=== PATIENT | female | born 1995 | race African-American/Black ===

== ENCOUNTER 2021-05-05 13:27 | Emergency (ER) | payer BC, MEDICARE, SELFPAY ==
--- NOTE | ~2021-05-05 | XR_ITS ---
XR ankle LT min 3V DATE: 05/05/2021 17:23 INDICATION: Fall. Left ankle injury, pain TECHNIQUE: 4 views COMPARISON: None FINDINGS: No fracture or dislocation of the ankle or disruption of the ankle mortise. No periosteal r eaction or bone destruction. 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
[2021-05-05 13:30] VITALS: BP 137/87; PULSE 86; RESP 16; TEMP 36.6; O2SAT 100
[2021-05-05 16:11] VITALS: BP 126/78; PULSE 88; RESP 12; TEMP 36.8; O2SAT 98
--- NOTE | 2021-05-05 16:20 | ED.LOWEXIN ---
HPI - Extremity Injury (Lower) General Chief Complaint: Extremity Injury, Lower Stated Complaint: left foot injury Time Seen by Provider: 05/05/21 16:20 Source: patient Mode of arrival: ambulatory Limitations: no limitations History of Present Illness HPI Narrative: Patient is a 26-year-old female presenting to the emergency department for evaluation of left ankle pain. Pain is on the lateral aspect of the left ankle that occurred while the patient was tripping over her feet. No head trauma, loss of conscious. No neck pain. Patient states outside of her left ankle touch the floor with immediate pain. No popping sensation. She has been ambulatory but states that ambulation does cause worsening pain. She has been taking Tylenol and ibuprofen without much improvement in her symptoms. Reports mild swelling denies bruising. No history of injury to this ankle in the past. Pain is dull, aching in nature, patient is able to flex and extend at the ankle. Related Data Allergies Allergy/AdvReac Type Severity Reaction Status Date / Time No Known Allergies Allergy Verified 05/05/21 17:43 Review of Systems Review of Systems: CONSTITUTIONAL: Denies fever CARDIOVASCULAR: Denies chest pain RESPIRATORY: Denies cough or dyspnea. GASTROINTESTINAL: Denies abdominal pain SKIN: Denies rash MUSCULOSKELETAL: Denies back pain, reports lateral left ankle pain NEUROLOGIC: Denies headache [facility] Social History Social History (Updated 05/05/21 @ 17:40 by Osiris Zhang MD) Smoking status: Never smoker Alcohol intake: never Substance use: never Gender identity (if verbalized by the patient): Female Exam Narrative: GENERAL: Awake, alert, conversant HEAD: Normocephalic, atraumatic. EYES: PERRLA and EOMI. ENT: Nares clear, no rhinorrhea or epistaxis. Mucous membranes moist. NECK: Supple. CHEST: No respiratory distress, breathing even and non labored HEART: Regular rate, sinus rhythm ABDOMEN:Non distended, non tender EXTREMITIES: Normal range of motion. Mild edema about the left ankle. Tenderness to the lateral malleolus, no medial malleolar tenderness. No deformity. No ecchymosis. Full flexion and extension without limitation. Full flexion-extension of the left knee without limitation. DP pulse 2+. Capillary refill less than 3 seconds. SKIN: Warm, dry, no rash. NEURO:No focal deficits. Alert and oriented x3 Course Vital Signs Vital signs: Vital Signs Temperature 36.6 C 05/05/21 13:30 Pulse Rate 86 05/05/21 13:30 Respiratory Rate 16 05/05/21 13:30 Blood Pressure 137/87 05/05/21 13:30 Pulse Oximetry 100 05/05/21 13:30 Temperature 36.8 C 05/05/21 16:11 Pulse Rate 88 05/05/21 16:11 Respiratory Rate 12 05/05/21 16:11 Blood Pressure 126/78 05/05/21 16:11 Pulse Oximetry 98 05/05/21 16:11 MDM - Extremity Injury (Lower) MDM Narrative Medical decision making narrative: Patient presented for evaluation of lateral left ankle pain after a ground-level fall. Patient with mild edema, no ecchymosis or erythema. Intact neurovascularly. X-ray is negative. Exam seems most consistent with ankle sprain. Patient was then discharged home advised to rest, ice, elevate continue anti-inflammatory medication. Differential Diagnosis Differential diagnosis: Likely ankle sprain and strain and ankle fracture Imaging Data Radiologist's impression: ITS Impressions Ankle X-Ray 05/05/21 17:25 IMPRESSION: No fracture or dislocation Discharge Plan Discharge Clinical Impression: Ankle sprain and strain Patient Disposition: Home, Self-Care Condition: Stable Instructions: Ankle Sprain (ED) Additional Instructions: Your x-ray was negative for fracture or dislocation. Your exam is most consistent with an ankle sprain. Please contact your primary care physician for follow up from this visit. If you experience worsening pain, vomiting that does not stop, bleeding complication
[2021-05-05] MEDS: ACETAMINOPHEN 500 MG TABLET 1000 MG PO (17:33)
[2021-05-05 17:52] VITALS: RESP 18
== END 2021-05-05 17:53 | disposition home or self-care (01) ==
PROVIDERS: Emergency Provider Emergency Medicine
DX: S93.402A Sprain of unspecified ligament of left ankle, initial encounter (principal); W18.40XA Slipping, tripping and stumbling without falling, unspecified, initial encounter
CPT/HCPCS: 73610; 99283; A9270